=== PATIENT | female | born 1945 | race Two or more races ===

== ENCOUNTER 2019-12-22 06:27 | Day surgery (SDC) | payer OTHER | END 2019-12-22 10:20 | disposition home or self-care (01) | LOC: AMB-ENDOS 06:27 | DX: K63.5 Polyp of colon (principal); K57.30 Diverticulosis of large intestine without perforation or abscess without bleeding ==

== ENCOUNTER 2021-03-07 07:10 | Day surgery (SDC) | payer OTHER | END 2021-03-07 17:03 | disposition home or self-care (01) | LOC: AMB-ENDOS 07:10 | PROVIDERS: ATTEND Surgery | DX: D12.2 Benign neoplasm of ascending colon (principal); D17.5 Benign lipomatous neoplasm of intra-abdominal organs; Z20.822 Contact with and (suspected) exposure to COVID-19 ==

== ENCOUNTER 2021-04-27 11:30 | Inpatient (IN) | payer OTHER ==
[~2021-04-27] VITALS: Ht 149.9 cm; Wt 74.8 kg
[2021-04-27] MEDS ORDERED: LEVOTHYROXINE25 MCG PO (12:59)
[2021-04-27] MEDS ORDERED: MULTIPLE VITAM1 EAC2 PO (13:00)
[2021-04-27] MEDS ORDERED: LOSARTAN POTASS25 MG PO (13:00)
[2021-05-03] MEDS ORDERED: ALENDRONATE SOD70 MG (13:25)
[2021-05-03] MEDS ORDERED: MAXIMUM D3325 MCG (13:25)
[2021-05-03] MEDS ORDERED: OPTIVE EYE DROP15 ML (13:26)
[2021-05-03] MEDS ORDERED: CANDESARTAN-HC1 EACH (13:26)
[2021-05-03] MEDS ORDERED: METFORMIN HCL750 MG (13:26)
[2021-05-03] MEDS ORDERED: KETOTIFEN FUMARA5 ML (13:26)
[2021-05-06] MEDS ORDERED: ULTRACET PO (08:57)
== END 2021-05-06 10:58 | disposition home or self-care (01) | DRG 331 ==
LOC: SURH 05-03 06:39 → O/R 05-03 06:39 → SURG 05-03 11:30 → SURH 05-03 16:16
PROVIDERS: ADMIT Surgery; ATTEND Surgery
PROC: 07TB4ZZ Resection of Mesenteric Lymphatic, Percutaneous Endoscopic Approach (ICD-10-PCS; 2021-05-03)
PROC: 0DTK4ZZ Resection of Ascending Colon, Percutaneous Endoscopic Approach (ICD-10-PCS; principal; 2021-05-03 12:45)
DX: K63.5 Polyp of colon (principal); R59.0 Localized enlarged lymph nodes; D37.4 Neoplasm of uncertain behavior of colon; Z20.822 Contact with and (suspected) exposure to COVID-19